=== PATIENT | female | born 1970 | race Caucasian/White ===

== ENCOUNTER → 2021-03-06 14:37 | Outpatient (CLI) | payer OTHER, SELFPAY ==
--- NOTE | 2021-03-06 14:49 | RAD_ITS ---
STUDY: X-RAY - CERVICAL SPINE REASON FOR EXAM: Female, 50 years old. CERVICALGIA TECHNIQUE: 5 view(s) of the cervical spine were obtained. COMPARISON: None FINDINGS: Normal anterior atlantoaxial articulation. Normal odontoid process. There is straightening of the normal cervical lordosis. Normal vertebral bodies and endplates. Disc spaces well preserved in the upper half of the cervical spine but there is disc space narrowing from C5-6 through C7-T1 most pronounced at C5-6. Normal visualized intervertebral neuroforamina except for bilateral narrowing at C5-6.. The soft tissue structures are unremarkable. RAD/Cerv Spine 4 or 5 Views IMPRESSION: Degenerative changes in the lower half of the C-spine, no demonstrated fracture or suspicious osseous lesion Electronically Signed: Corby Mata MD at 17:18 EST , Service support ,
== END ==
PROVIDERS: Referring Provider Nurse Practitioner Family; Visit Provider Nurse Practitioner Family
DX: M50.322 Other cervical disc degeneration at C5-C6 level (principal); M48.02 Spinal stenosis, cervical region
CPT/HCPCS: 72050

== ENCOUNTER 2021-06-01 11:03 | Outpatient (CLI) | payer OTHER, SELFPAY ==
[2021-06-01 12:07] LABS: Absolute Lymphocyte Count 3.13 X10^3/uL (0.83-4.51); Absolute Neutrophil Count 4.5 X10^3/uL (2.0-7.7); Basophil# 0.04 X10^3/uL; Basophil% 0.5 % (0-1); Eosinophil# 0.07 X10^3/uL; Eosinophils% 0.8 % (0-5); Hematocrit 43.3 % (37-47); Hemoglobin 14.9 g/dL (12.0-15.0); Lymphocyte # 3.13 X10^3/ul (0.83-4.51); Lymphocyte % 37.5 % (19-41); Mean Corp Hgb Conc 34.4 g/dL (32-36); Mean Corpuscular Hgb 35.1 pg (27.0-32.0); Mean Corpuscular Volume 101.9 fL (81-99); Mean Platelet Vol. 10.7 fl (6.2-12.0); Monocyte# 0.59 X10^3/uL; Monocyte% 7.1 % (0-10); NRBC Flagged by Analyzer 0 % (0-5); Neutrophil # 4.48 X10^3/uL (2.7-7.7); Neutrophil % 53.7 % (47-70); Platelet Count 270 K/mm3 (150-450); RBC Distribution Width CV 12.6 % (11.6-14.6); RBC Distribution Width SD 47.6 fl (35.1-43.9); Red Blood Count 4.25 M/mm3 (4.2-5.4); White Blood Count 8.3 K/mm3 (4.4-11.0)
[2021-06-01 12:43] LABS: ALB/GLOB Ratio 1.2 RATIO (0.9-2.4); AST(SGOT) 15 U/L (15-37); Alanine Aminotransfer ALT/SGPT 24 U/L (13-56); Albumin, Serum 3.5 g/dL (3.2-5.0); Alkaline Phosphatase 98 U/L (45-117); Anion Gap 5 (5-15); BUN 8 mg/dL (7-18); BUN/Creat Ratio 11.6 RATIO (10-20); Calcium,Total 8.7 mg/dL (8.5-10.1); Chloride 105 mmol/L (98-107); Cholesterol 247 mg/dL (200); Creatinine, Serum 0.69 mg/dL (0.55-1.02); EST Glomerular Filtration Rate 95 mL/min (>60); Est Glom Filt Rate - Afr Amer 115 mL/min (>60); Glucose 101 mg/dL (74-106); High Density Lipoprotein 36 mg/dL; Potassium 3.9 mmol/L (3.5-5.1); Protein, Total 6.5 g/dL (6.4-8.2); Sodium Level 136 mmol/L (136-145); Thyroid Stim Hormone (TSH) 0.63 uIU/mL (0.358-3.74); Triglycerides 395 mg/dL; Very Low Density Lipoprotein 79 mg/dL (5-40)
== END 2021-06-01 23:59 | disposition home or self-care (01) ==
LOC: MFPLAB 11:07
PROVIDERS: PCP Family Medicine; Referring Provider Family Medicine; Visit Provider Family Medicine
DX: Z00.00 Encounter for general adult medical examination without abnormal findings (principal); F17.210 Nicotine dependence, cigarettes, uncomplicated
CPT/HCPCS: 36415; 80053; 80061; 84443; 85025

== ENCOUNTER 2021-08-17 05:14 | Day surgery (SDC) | payer OTHER, SELFPAY ==
[2021-08-17] VITALS (14 sets, daily range): BP systolic 90–133; BP diastolic 53–84; PULSE 55–84; RESP 16–18; TEMP 35.5–36.3; O2SAT 97–100; BMI 28.5
--- NOTE | 2021-08-17 06:02 | PCM.HP.STD ---
HPI - General HPI Narrative AMANDA SOMMER, is a 51 F who presents today for screening colonoscopy. She had a previous remote greater than 10 years ago. She denies any current abdominal pain. She states that she has had bouts of diverticular disease in the past. No bright red blood per rectum or melena. No history of DVT. She does have chronic back pain. PFSH Medical History Alcohol use Arthritis Easy bruising History of diverticulitis History of pain when walking Injury of back Injury of head and neck Low iron Shortness of breath on exertion Smoker Home Medications acetaminophen [Tylenol] 1,000 mg PO DAILY 08/15/21 [History Last Taken Unknown] oregano oil 1 mg PO DAILY 08/15/21 [History Last Taken Unknown] Allergy/AdvReac Type Severity Reaction Status Date / Time codeine Allergy Severe Vomiting Verified 08/17/21 05:48 Penicillins Allergy PT UNSURE Verified 08/17/21 05:48 OF REACTION Surgical History (Updated 08/15/21 @ 08:46 by Jessica Rowley) History of partial hysterectomy Hx of bilateral inguinal hernia repair Hx of colonoscopy Hx of tubal ligation Hx of wisdom tooth extraction Social History Smoking Status: Current every day smoker tobacco type: cigarettes ROS Constitutional Constitutional: Reports systems reviewed and no addt'l complaints, except as documented Cardiovascular Cardiovascular: Denies chest pain Respiratory/Chest Respiratory/Chest: Denies shortness of breath at rest Gastrointestinal Gastrointestinal: Denies abdominal pain, change in bowel habits, hematochezia or melena Vital Signs Vital Signs Vital Signs: 08/17/21 05:51 08/17/21 05:52 Temperature 96.8 F L Temperature Source Temporal Pulse Rate 75 Respiratory Rate 18 Respiratory Pattern Normal Blood Pressure 124/62 H Blood Pressure Mean 82 Blood Pressure Source Monitor Blood Pressure Position Semi-Fowlers Blood Pressure Location Right Arm Pulse Ox 100 Oxygen Delivery Method Room Air Weight Weight: 156 lb 6.4 oz Body Mass Index (BMI) 28.5 Physical Exam Const alert, oriented x3 and no apparent distress General Appearance: cooperative and comfortable Eyes General Eye: normal appearance of both eyes Neck General: normal visual inspection Chest inspection of chest normal Resp Effort and Inspection: able to speak in complete sentences and symmetric chest movement Auscultation: clear to auscultation bilaterally Cardio regular rate and regular rhythm GI soft to palpation, non-tender and non-distended Extremity no calf tenderness Neuro oriented x3 Psych thought process normal Assessment & Plan Assessment/Plan (1) Encounter for screening for malignant neoplasm of colon: PLAN: The patient presents via open access today for screening colonoscopy. Plan to proceed with a colonoscopy with possible biopsy or polypectomy as indicated. She is aware of the technique, benefit, risk, alternatives. She has had an opportunity to ask and have questions answered. We will proceed as noted. Trav Shelton M.D., F.A.C.S.
[2021-08-17] MEDS: Lactated Ringers 1,000 ML 15 ML IV (06:09)
[2021-08-17] MEDS: Midazolam 5 MG/ML Syringe (06:30)
--- NOTE | 2021-08-17 06:30 | COLBX_PTH ---
PATIENT: AMANDA SOMMER LOC: EN U#:[id number] AGE/SX: 51/F ROOM: RE08/17/[address]: Dr. Trav Shelton MD : 1970 BED: DIS: 08/17/2021 SPEC #: [id number] RECD: 08/17/21 12:16 STATUS: SULEMA JUN #: [id number] RAÚL: 08/17/21 06:[address]: Trav Shelton DEPT: SURGICAL PATHOLOGY RECD BY: Sally Mac ENTERED: 08/17/21 12:40 SP TYPE: COLON BX OTHR DR: Dr. Jose Montez MD Tissues: Rectum, NOS Procedures: Surgery Specimen Level IV HEADER OPERATION: Colonoscopy ? open access (MOD) PRE-OP DIAGNOSIS: Screening TISSUE SUBMITTED: Two rectal polyps MICROSCOPIC DIAGNOSIS Rectal polyps, biopsy: Fragments of hyperplastic polyp. AM:christine 08/20/2021 MICROSCOPIC DESCRIPTION Slides are reviewed. GROSS DESCRIPTION Received in fixative is one container labeled with the patient's name and designated biopsy two (2) rectal polyps. The specimen consists of two irregular fragments of light kauffman soft tissue that in aggregate measure 0.5 x 0.5 x 0.2 cm. The specimen is totally submitted in one cassette. / SJ:christine 08/17/2021 TC:5 CPT: 89667
[2021-08-17] MEDS: DiphenhydrAMINE 50 MG/ML Syringe (06:35)
--- NOTE | 2021-08-17 06:49 | OP.COLON_ITS ---
Patient Name: Nyla Saleh Procedure Date: 08/17/2021 6:12 AM Date of : 1970 Age: 51 Procedure: Colonoscopy Indications: Screening for colorectal malignant neoplasm Providers: Trav Shelton MD Referring MD: Jose Montez Medicines: Midazolam 5 mg IV, Meperidine 100 mg IV, Diphenhydramine 25 mg IV Patient Profile: Last Colonoscopy: more than 10 years ago. Complications: No immediate complications. Procedure: Pre-Anesthesia Assessment: - Prior to the procedure, a History and Physical was performed, and patient medications and allergies were reviewed. The patient's tolerance of previous anesthesia was also reviewed. The risks and benefits of the procedure and the sedation options and risks were discussed with the patient. All questions were answered, and informed consent was obtained. Prior Anticoagulants: The patient has taken no previous anticoagulant or antiplatelet agents. ASA Grade Assessment: II - A patient with mild systemic disease. After reviewing the risks and benefits, the patient was deemed in satisfactory condition to undergo the procedure. After I obtained informed consent, the scope was passed under direct vision. Throughout the procedure, the patient's blood pressure, pulse, and oxygen saturations were monitored continuously. The adult colonoscope was introduced through the anus with the intention of advancing to the transverse colon. The scope was advanced to the sigmoid colon before the procedure was aborted. Medications were given. The colonoscopy was unusually difficult due to the patient's anxiety. The patient tolerated the procedure poorly due to the patient's inability to cooperate, the patient's poor cooperation, the patient's agitation and the patient's anxiety. The quality of the bowel preparation was good. The Colonoscope was introduced through the and advanced to. Moderate Sedation: Moderate (conscious) sedation was personally administered by the endoscopist. The following parameters were monitored: oxygen saturation, heart rate, blood pressure, and response to care. Total physician intraservice time was 10 minutes. Scope In: 6:34:27 AM Scope Out: 6:40:28 AM Total Procedure Duration Time 0 hours 6 minutes 1 second Findings: Hemorrhoids were found on perianal exam. Multiple diverticula were found in the sigmoid colon. There was no evidence of diverticular bleeding. Impression: - Hemorrhoids found on perianal exam. - Severe diverticulosis in the sigmoid colon. There was no evidence of diverticular bleeding. - No specimens collected. Recommendation: - Repeat colonoscopy today under MAC for screening purposes. - Continue present medications. Procedure Code(s): --- Professional --- 74455, 53, Colonoscopy, flexible; diagnostic, including collection of specimen(s) by brushing or washing, when performed (separate procedure) 12143, 59, Moderate sedation services provided by the same physician or other qualified health vision care associate performing the diagnostic or therapeutic service that the sedation supports, requiring the presence of an independent trained observer to assist in the monitoring of the patient's level of consciousness and physiological status; initial 15 minutes of intraservice time, patient age 5 years or older Diagnosis Code(s): --- Professional --- Z12.11, Encounter for screening for malignant neoplasm of colon K64.9, Unspecified hemorrhoids K57.30, Diverticulosis of large intestine without perforation or abscess without bleeding CPT copyright 2017 [employer]. All rights reserved. The codes documented in this report are preliminary and upon medical biller/coder review may be revised to meet current compliance requirements. Trav Shelton MD 08/17/2021 6:49:15 AM This report has been signed electronically. Number of Addenda: 0 Note Initiated On: 08/17/2021 6:12 AM
--- NOTE | 2021-08-17 06:50 | OP.CCLET_ITS ---
08/17/2021 Jose Montez [address] [place] [address] Re : Colonoscopy procedure for Nyla Saleh Dear Dr. Montez This procedure was performed on Tuesday, August 17, 2021. My impressions and recommendations are as follows: Impressions : - Hemorrhoids found on perianal exam. - Severe diverticulosis in the sigmoid colon. There was no evidence of diverticular bleeding. - No specimens collected. Recommendations : - Repeat colonoscopy today under MAC for screening purposes. - Continue present medications. My findings are described in the full procedure note, which is enclosed. If I can be of further assistance, please feel free to contact me at Doctor phone number(s): Work: . Sincerely, Trav Shelton MD 08/17/2021 6:49:15 AM This report has been signed electronically.
--- NOTE | 2021-08-17 08:35 | OP.COLON_ITS ---
Patient Name: Nyla Saleh Procedure Date: 08/17/2021 8:22 AM Date of : 1970 Age: 51 Procedure: Colonoscopy Indications: Screening for colorectal malignant neoplasm Providers: Trav Shelton MD Referring MD: Jose Montez Medicines: See the Anesthesia note for documentation of the administered medications Patient Profile: Last Colonoscopy: more than 10 years ago. Last Colonoscopy: more than 10 years ago. Complications: No immediate complications. Procedure: Pre-Anesthesia Assessment: - Prior to the procedure, a History and Physical was performed, and patient medications and allergies were reviewed. The patient's tolerance of previous anesthesia was also reviewed. The risks and benefits of the procedure and the sedation options and risks were discussed with the patient. All questions were answered, and informed consent was obtained. Prior Anticoagulants: The patient has taken no previous anticoagulant or antiplatelet agents. ASA Grade Assessment: II - A patient with mild systemic disease. After reviewing the risks and benefits, the patient was deemed in satisfactory condition to undergo the procedure. After I obtained informed consent, the scope was passed under direct vision. Throughout the procedure, the patient's blood pressure, pulse, and oxygen saturations were monitored continuously. The Colonoscope was introduced through the anus and advanced to the cecum, identified by appendiceal orifice and ileocecal valve. The colonoscopy was unusually difficult due to multiple diverticula in the colon. The patient tolerated the procedure well. The quality of the bowel preparation was adequate. The ileocecal valve and the appendiceal orifice were photographed. Scope In: 8:21:04 AM Scope Withdrawal Time 0 hours 6 minutes 42 seconds Scope Out: 8:29:55 AM Total Procedure Duration Time 0 hours 8 minutes 51 seconds Findings: Hemorrhoids were found on perianal exam. Multiple diverticula were found in the sigmoid colon and descending colon. The exam was otherwise without abnormality. A 5 mm polyp was found in the rectum. The polyp was sessile. The polyp was removed with a cold biopsy forceps. Resection and retrieval were complete. A 9 mm polyp was found in the rectum. The polyp was sessile. The polyp was removed with a cold biopsy forceps. Resection and retrieval were complete. Impression: - Hemorrhoids found on perianal exam. - Diverticulosis in the sigmoid colon and in the descending colon. Polyps x2, completely benign appearance - The examination was otherwise normal. - No specimens collected. Recommendation: - Discharge patient to home. - Resume previous diet. - Continue present medications. - Repeat colonoscopy in 10 years for screening purposes pending pathology results. - Telephone my office for pathology results in 1 week. Procedure Code(s): --- Professional --- 16113, Colonoscopy, flexible; with biopsy, single or multiple CPT copyright 2017 [employer]. All rights reserved. The codes documented in this report are preliminary and upon finished goods stock clerk review may be revised to meet current compliance requirements. Trav Shelton MD 08/17/2021 8:35:19 AM This report has been signed electronically. Number of Addenda: 0 Note Initiated On: 08/17/2021 8:22 AM
--- NOTE | 2021-08-17 08:36 | OP.CCLET_ITS ---
08/17/2021 Jose Montez [address] [place] [address] Re : Colonoscopy procedure for Nyla Saleh Dear Dr. Montez This procedure was performed on Tuesday, August 17, 2021. My impressions and recommendations are as follows: Impressions : - Hemorrhoids found on perianal exam. - Diverticulosis in the sigmoid colon and in the descending colon. Polyps x2, completely benign appearance - The examination was otherwise normal. - No specimens collected. Recommendations : - Discharge patient to home. - Resume previous diet. - Continue present medications. - Repeat colonoscopy in 10 years for screening purposes pending pathology results. - Telephone my office for pathology results in 1 week. My findings are described in the full procedure note, which is enclosed. If I can be of further assistance, please feel free to contact me at Doctor phone number(s): Work: . Sincerely, Trav Shelton MD 08/17/2021 8:35:19 AM This report has been signed electronically.
== END 2021-08-17 09:28 | disposition home or self-care (01) ==
LOC: EN 05:22 → AC 05:23
PROVIDERS: PCP Family Medicine; Referring Provider Family Medicine; Visit Provider Surgery
PROC: 0DJD8ZZ Inspection of Lower Intestinal Tract, Via Natural or Artificial Opening Endoscopic (ICD-10-PCS; CPT 45378; principal; 2021-08-17 06:25)
DX: Z12.11 Encounter for screening for malignant neoplasm of colon (principal); D12.8 Benign neoplasm of rectum; K57.30 Diverticulosis of large intestine without perforation or abscess without bleeding; K64.9 Unspecified hemorrhoids; F17.210 Nicotine dependence, cigarettes, uncomplicated
CPT/HCPCS: 45380; 88305; 99152; 99153; J7120; J2405

== ENCOUNTER → 2022-05-23 | Outpatient (CLI) | payer MEDICAID, SELFPAY ==
[2022-05-23 18:02] LABS: Absolute Lymphocyte Count 3.75 X10^3/uL (0.83-4.51); Absolute Neutrophil Count 7.2 X10^3/uL (2.0-7.7); Basophil# 0.05 X10^3/uL; Basophil% 0.4 % (0-1); Eosinophil# 0.17 X10^3/uL; Eosinophils% 1.4 % (0-5); Hematocrit 41.4 % (37-47); Hemoglobin 14.5 g/dL (12.0-15.0); Lymphocyte # 3.75 X10^3/ul (0.83-4.51); Lymphocyte % 31.3 % (19-41); Mean Corpuscular Hgb 36.2 pg (27.0-32.0); Mean Corpuscular Volume 103.2 fL (81-99); Mean Platelet Vol. 12.7 fl (6.2-12.0); Monocyte# 0.75 X10^3/uL; Monocyte% 6.3 % (0-10); NRBC Flagged by Analyzer 0 % (0-5); Neutrophil # 7.21 X10^3/uL (2.7-7.7); Neutrophil % 60.3 % (47-70); Platelet Count 221 K/mm3 (150-450); RBC Distribution Width CV 12.5 % (11.6-14.6); RBC Distribution Width SD 47.2 fl (35.1-43.9); Red Blood Count 4.01 M/mm3 (4.2-5.4)
[2022-05-23 18:19] LABS: Vitamin B12 798 pg/mL (211-911)
[2022-05-23 18:29] LABS: ALB/GLOB Ratio 1.3 RATIO (0.9-2.4); AST(SGOT) 17 U/L (15-37); Alanine Aminotransfer ALT/SGPT 23 U/L (13-56); Albumin, Serum 3.7 g/dL (3.2-5.0); Alkaline Phosphatase 101 U/L (45-117); Anion Gap 8 (5-15); BUN 7 mg/dL (7-18); BUN/Creat Ratio 10.4 RATIO (10-20); Calcium,Total 8.7 mg/dL (8.5-10.1); Chloride 105 mmol/L (98-107); Creatinine, Serum 0.67 mg/dL (0.55-1.02); EST Glomerular Filtration Rate 98 mL/min (>60); Est Glom Filt Rate - Afr Amer 118 mL/min (>60); Globulin 2.9 g/dL (2.2-4.2); Glucose 115 mg/dL (74-106); Iron 72 ug/dL (50-170); Iron Binding Capacity,Total 265 ug/dL (250-450); Magnesium 1.9 mg/dL (1.6-2.6); PERCENT IRON SATURATION 27.2 % (15.0-55.0); Potassium 3.9 mmol/L (3.5-5.1); Protein, Total 6.6 g/dL (6.4-8.2); Sodium Level 137 mmol/L (136-145)
[2022-05-24 12:49] LABS: Hemoglobin A1c 5.4 % (3.8-5.6)
[2022-05-27 16:24] LABS: Endomysial Antibody IgA Negative (Negative); Immunoglobulin A 275 mg/dL (87-352); t-Transglutaminase IgA 3 U/mL (0-3)
== END | disposition home or self-care (01) ==
PROVIDERS: PCP Family Medicine; Referring Provider Family Medicine; Visit Provider Family Medicine
DX: K52.9 Noninfective gastroenteritis and colitis, unspecified (principal)
CPT/HCPCS: 36415; 80053; 82607; 82784; 83036; 83516; 83540; 83550; 83735; 85025; 86255

== ENCOUNTER → 2022-05-28 | Outpatient (CLI) | payer MEDICAID, SELFPAY ==
[2022-06-05 09:59] LABS: Calprotectin, Stool 41 ug/g (0-120); Fats, Neutral Normal (.); Fats, Total Increased (.)
== END | disposition home or self-care (01) ==
PROVIDERS: PCP Family Medicine; Referring Provider Family Medicine; Visit Provider Family Medicine
DX: J35.3 Hypertrophy of tonsils with hypertrophy of adenoids (principal); H66.93 Otitis media, unspecified, bilateral
CPT/HCPCS: 82705; 83630; 83993; 87177; 87209; 87493; 87506

== ENCOUNTER 2022-08-12 13:10 | Outpatient (CLI) | payer MEDICAID, SELFPAY ==
[2022-08-12 13:54] LABS: Erythrocyte Sedimentation Rate 7 mm/hr (0-30)
[2022-08-12 13:57] LABS: Absolute Lymphocyte Count 3.21 X10^3/uL (0.83-4.51); Absolute Neutrophil Count 7.1 X10^3/uL (2.0-7.7); Basophil# 0.06 X10^3/uL; Basophil% 0.5 % (0-1); Eosinophil# 0.07 X10^3/uL; Eosinophils% 0.6 % (0-5); Hematocrit 44.2 % (37-47); Hemoglobin 15.3 g/dL (12.0-15.0); Lymphocyte # 3.21 X10^3/ul (0.83-4.51); Lymphocyte % 28.7 % (19-41); Mean Corp Hgb Conc 34.6 g/dL (32-36); Mean Corpuscular Hgb 35.1 pg (27.0-32.0); Mean Corpuscular Volume 101.4 fL (81-99); Mean Platelet Vol. 10.6 fl (6.2-12.0); Monocyte# 0.74 X10^3/uL; Monocyte% 6.6 % (0-10); NRBC Flagged by Analyzer 0 % (0-5); Neutrophil # 7.07 X10^3/uL (2.7-7.7); Neutrophil % 63.2 % (47-70); Platelet Count 283 K/mm3 (150-450); RBC Distribution Width SD 45.3 fl (35.1-43.9); Red Blood Count 4.36 M/mm3 (4.2-5.4); White Blood Count 11.2 K/mm3 (4.4-11.0)
[2022-08-12 14:16] LABS: AST(SGOT) 18 U/L (15-37); Alanine Aminotransfer ALT/SGPT 27 U/L (13-56); Albumin, Serum 3.8 g/dL (3.2-5.0); Alkaline Phosphatase 110 U/L (45-117); Anion Gap 6 (5-15); BUN 7 mg/dL (7-18); BUN/Creat Ratio 10.7 RATIO (10-20); CRP 8.45 mg/L (0.0-3.0); Calcium,Total 9.1 mg/dL (8.5-10.1); Chloride 103 mmol/L (98-107); Creatinine, Serum 0.66 mg/dL (0.55-1.02); EST Glomerular Filtration Rate 100 mL/min (>60); Est Glom Filt Rate - Afr Amer 121 mL/min (>60); Globulin 3.8 g/dL (2.2-4.2); Glucose 101 mg/dL (74-106); LDH 229 U/L (84-246); Potassium 3.7 mmol/L (3.5-5.1); Protein, Total 7.6 g/dL (6.4-8.2); Sodium Level 135 mmol/L (136-145)
[2022-08-14 15:08] LABS: Endomysial Antibody IgA Negative (Negative); Immunoglobulin A 293 mg/dL (87-352); t-Transglutaminase IgA 3 U/mL (0-3)
[2022-08-16 19:07] LABS: Alpha-1-Globulins 0.3 g/dL (0.0-0.4); Alpha-2-Globulins 0.9 g/dL (0.4-1.0); Anti-Centromere B Ab <0.2 AI (0.0-0.9); Anti-Chromatin <0.2 AI (0.0-0.9); Anti-Jo <0.2 AI (0.0-0.9); Anti-Scleroderma-70 AB <0.2 AI (0.0-0.9); Anti-dsDNA Ab <1 IU/mL (0-9); Beef <0.10 kU/L (Class 0); Chocolate <0.10 kU/L (Class 0); Clam <0.10 kU/L (Class 0); Codfish <0.10 kU/L (Class 0); Corn <0.10 kU/L (Class 0); Cytoplasmic Ab (C-ANCA) <1:20 titer (Neg:<1:20); Egg, White <0.10 kU/L (Class 0); Egg, Whole <0.10 kU/L (Class 0); Gamma Globulin 0.7 g/dL (0.4-1.8); Gastrin, Serum 28 pg/mL (0-115); Immunoglobulin A 290 mg/dL (87-352); Immunoglobulin E 17 IU/mL (6-495); Immunoglobulin G 520 mg/dL (586-1602); Immunoglobulin M 240 mg/dL (26-217); Milk (Cow) <0.10 kU/L (Class 0); PROEL- TOTAL PROTEIN 7.1 g/dL (6.0-8.5); Peanut <0.10 kU/L (Class 0); Perinuclear Ab (P-ANCA) <1:20 titer (Neg:<1:20); Pork <0.10 kU/L (Class 0); RNP Ab <0.2 AI (0.0-0.9); SCALLOP <0.10 kU/L (Class 0); SESAME SEED <0.10 kU/L (Class 0); SJOGREN'S Anti-SS-A test < 0.2 AI (0.0-0.9); SJOGREN'S Anti-SS-B test < 0.2 AI (0.0-0.9); Shrimp <0.10 kU/L (Class 0); Smith Ab <0.2 AI (0.0-0.9); Soybean <0.10 kU/L (Class 0); Walnut, (Food) <0.10 kU/L (Class 0); Wheat <0.10 kU/L (Class 0)
== END 2022-08-12 23:59 | disposition home or self-care (01) ==
PROVIDERS: PCP Family Medicine; Referring Provider Internal Medicine Gastroenterology; Visit Provider Internal Medicine Gastroenterology
DX: R19.7 Diarrhea, unspecified (principal)
CPT/HCPCS: 36415; 80053; 82784; 82785; 82941; 83516; 83615; 84165; 85025; 85652; 86003; 86005; 86140; 86225; 86235; 86255; 86256; 86334

== ENCOUNTER → 2022-08-24 | Outpatient (CLI) | payer MEDICAID, SELFPAY ==
[2022-08-24 09:45] LABS: Hemoglobin A1c 5.4 % (3.8-5.6)
== END | disposition home or self-care (01) ==
LOC: LABSPEC 08:07
PROVIDERS: PCP Family Medicine; Referring Provider Internal Medicine Gastroenterology; Visit Provider Internal Medicine Gastroenterology
DX: K52.9 Noninfective gastroenteritis and colitis, unspecified (principal); R73.09 Other abnormal glucose
CPT/HCPCS: 36415; 82653; 82784; 83036; 83516; 86255; 87338; 87493

== ENCOUNTER → 2023-01-01 | Outpatient (CLI) | payer MEDICAID, SELFPAY ==
--- NOTE | 2023-01-01 11:45 | NM_ITS ---
INDICATION: nausea and vomiting EXAMINATION: NUCLEAR MEDICINE GASTRIC EMPTYING - NM Gastric Emptying Study (solid, liquid or both) TECHNIQUE: Radiopharmaceutical (solid portion of the exam): 1.0 mCi of Tc99m Sulfur Colloid mixed with oat meal. Oral administration. Imagin minutes COMPARISON: None FINDINGS: T1/2 is measured at 35 minutes. At 60 minutes, there is 83% emptying. Visually, there is normal passage of isotope from the gastric fundus into the distal stomach and proximal small bowel. No gastroesophageal reflux. NM/Gastric Emptying Study IMPRESSION: Normal gastric emptying time with solids. Electronically Signed: Mo Graham MD ([place]) at 13:53 EDT ,
== END | disposition home or self-care (01) ==
LOC: NM 11:44
PROVIDERS: PCP Family Medicine; Referring Provider Internal Medicine Gastroenterology; Visit Provider Internal Medicine Gastroenterology
DX: Z12.11 Encounter for screening for malignant neoplasm of colon (principal); R11.2 Nausea with vomiting, unspecified; R19.7 Diarrhea, unspecified
CPT/HCPCS: 78264; A9541

== ENCOUNTER → 2023-01-25 | Outpatient (CLI) | payer MEDICAID, SELFPAY ==
--- NOTE | 2023-01-25 09:27 | US_ITS ---
STUDY: ABDOMINAL ULTRASOUND - RIGHT UPPER QUADRANT REASON FOR VISIT: Female, 52 years old possible chronic pancreatitis, abnormal stools TECHNIQUE: Ultrasound evaluation of the right upper quadrant was performed with real-time and static palma-scale imaging. TECHNICAL QUALITY: Adequate. COMPARISON: None. FINDINGS: Liver: The liver measures 14.0 cm. There is normal echogenicity of the liver. The bile ducts are within normal limits. There is hepatic color flow. The direction of portal flow is hepatopetal. There is no demonstrated mass lesion. Gallbladder: Normal distended gallbladder. The gallbladder wall measures 2 mm. There is a negative sonographic Dickerson''s sign. There is no pericholecystic fluid. There are no gallstones. Common Bile Duct (C.B.D.): The common bile duct measures 5 mm. Pancreas: Normal size of the head, body and tail of the pancreas. There is normal echogenicity of the pancreas. There is no demonstrated pancreatic mass or cyst. Right Kidney: Normal size of the right kidney. The right kidney measures 9.5 cm. Normal renal cortex. The right cortex measures 1.3 cm. There is no demonstrated renal mass or cyst. There is no right hydronephrosis. US/Abdomen Limited IMPRESSION: Normal right upper quadrant ultrasound examination. Electronically Signed: Fransisco Hicks MD at 21:09 EST ,
== END | disposition home or self-care (01) ==
LOC: US 09:18
PROVIDERS: PCP Family Medicine; Visit Provider Internal Medicine Gastroenterology
DX: K59.1 Functional diarrhea (principal)
CPT/HCPCS: 76705

== ENCOUNTER → 2023-03-06 | Outpatient (CLI) | payer MEDICAID, SELFPAY ==
--- OUTSIDE RECORDS SUMMARY | 2023-03-06 07:34 | XMS RPT_ITS | CCD ---
Author Name Unknown Address [address] [place] [address] Organization [facility] Results Test Name Value Interpretation Reference Range Facil ity Summary Purpose Family History No Family History Records Found Advance Directives No Advanced Directives Records Found Additional Source Comments INFORMATION SOURCE (unrecogn ized section and content) FOR RECORDS PERTAINING TO PATIENTS WHO ARE OR HAVE BEEN ENROLLED IN A CHEMICAL DEPENDENCY/SUBSTANCEABUSE PROGRAM, SOME INFORMATION MAY BE OMITTED. This clinical summary was aggregated from multiple sources. Caution should be exercised in using it in the provision of clinical care. This summary normalizes information from multiple sources, and as a consequence, information in this document may materially change the coding, format and clinical context of patient data. In addition, data may be omitted in some cases. CLINICAL DECISIONS SHOULD BE BASED ON THE PRIMARY CLINICAL RECORDS. [facility] [employer] [facility]. provides no warranty or guarantee of the accuracy or completeness of information in this document.
--- NOTE | 2023-03-06 07:37 | CT_ITS ---
STUDY: CT ABDOMEN WITH CONTRAST REASON FOR EXAM: Female, 52 years old. Nausea, abdominal pain and loose stools. RADIATION DOSAGE (If Supplied By Facility): CTDIvol = ( 8.66 ) mGy, DLP = ( 253.00 ) mGycm TECHNIQUE: Transaxial images were obtained without I.V. administration, and with oral contrast. Sagittal and coronal images were reconstructed. Individualized dose optimization techniques were used for this CT. COMPARISON: None. FINDINGS: The visualized lung bases are unremarkable. The visualized portions of the heart are within normal limits. Normal liver. Normal gallbladder and extrahepatic biliary system. Normal spleen. Normal pancreas. Normal bilateral adrenal glands. Normal right kidney. Normal left kidney. Normal visualized stomach. Normal small intestine. Normal colon. There is non-visualization of the appendix. Mild scattered calcifications of the inferior abdominal aorta extending to the proximal iliac arteries. Normal inferior vena cava. Normal retroperitoneum. There is a small umbilical hernia containing fat. There are diffuse degenerative changes of the visualized lumbar spine. CT/Abdomen WITH ORAL Cont Only IMPRESSION: No evidence of acute intra-abdominal process or focal inflammation. Small umbilical fat-containing hernia. Electronically Signed: Chago Acuna DO at 14:02 [facility] ,
== END | disposition home or self-care (01) ==
LOC: CT 07:32
PROVIDERS: PCP Family Medicine; Referring Provider Internal Medicine Gastroenterology; Visit Provider Internal Medicine Gastroenterology
DX: K52.9 Noninfective gastroenteritis and colitis, unspecified (principal); R10.9 Unspecified abdominal pain
CPT/HCPCS: 74150

== ENCOUNTER → 2023-05-15 | Outpatient (CLI) | payer MEDICAID, SELFPAY ==
--- NOTE | 2023-05-15 12:41 | RAD_ITS ---
INDICATION: PAIN EXAMINATION/TECHNIQUE: X-RAY - XR Spine Thoracic 2 Views COMPARISON: No relevant prior comparison study available FINDINGS: VERTEBRAE: Preserved vertebral body height. No fracture. No spondylolisthesis. Mild increased kyphosis. Mild dextroscoliosis. DISCS: Mild narrowing of mid thoracic disc spaces. Endplate spondylosis. INCLUDED CHEST/ABDOMEN: No acute abnormalities. RAD/Thoracic Spine 2 Views IMPRESSION: Mild degenerative changes. Electronically Signed: Sedrick Avendaño MD at 10:27 EST ,
== END | disposition home or self-care (01) ==
LOC: MTRAD 12:39
PROVIDERS: PCP Family Medicine; Referring Provider Clinical Nurse Specialist Adult Health; Visit Provider Clinical Nurse Specialist Adult Health
DX: M54.6 Pain in thoracic spine (principal)
CPT/HCPCS: 72070

== ENCOUNTER → 2023-06-24 | Outpatient (CLI) | payer MEDICAID, SELFPAY ==
[2023-06-24 15:19] LABS: Absolute Lymphocyte Count 2.51 X10^3/uL (0.83-4.51); Absolute Neutrophil Count 6.6 X10^3/uL (2.0-7.7); Basophil# 0.05 X10^3/uL; Basophil% 0.5 % (0-1); Eosinophil# 0.09 X10^3/uL; Eosinophils% 0.9 % (0-5); Hematocrit 39.1 % (37-47); Lymphocyte # 2.51 X10^3/ul (0.83-4.51); Lymphocyte % 25.5 % (19-41); Mean Corp Hgb Conc 33.2 g/dL (32-36); Mean Corpuscular Hgb 33.9 pg (27.0-32.0); Mean Corpuscular Volume 102.1 fL (81-99); Mean Platelet Vol. 11.2 fl (6.2-12.0); Monocyte# 0.56 X10^3/uL; Monocyte% 5.7 % (0-10); NRBC Flagged by Analyzer 0 % (0-5); Platelet Count 250 K/mm3 (150-450); RBC Distribution Width CV 12.5 % (11.6-14.6); RBC Distribution Width SD 47.3 fl (35.1-43.9); Red Blood Count 3.83 M/mm3 (4.2-5.4); White Blood Count 9.9 K/mm3 (4.4-11.0)
[2023-06-24 16:06] LABS: ALB/GLOB Ratio 1.1 RATIO (0.9-2.4); AST(SGOT) 16 U/L (15-37); Alanine Aminotransfer ALT/SGPT 21 U/L (13-56); Albumin, Serum 3.3 g/dL (3.2-5.0); Alkaline Phosphatase 106 U/L (45-117); Anion Gap 4 (5-15); BUN 6 mg/dL (7-18); BUN/Creat Ratio 8.7 RATIO (10-20); Calcium,Total 8.8 mg/dL (8.5-10.1); Chloride 106 mmol/L (98-107); Creatinine, Serum 0.69 mg/dL (0.55-1.02); EST Glomerular Filtration Rate 94 mL/min (>60); Est Glom Filt Rate - Afr Amer 114 mL/min (>60); Globulin 3.1 g/dL (2.2-4.2); Glucose 99 mg/dL (74-106); Lipase 31 U/L (13-75); Potassium 3.9 mmol/L (3.5-5.1); Protein, Total 6.4 g/dL (6.4-8.2); Sodium Level 139 mmol/L (136-145)
== END | disposition home or self-care (01) ==
LOC: MFPLAB 13:53
PROVIDERS: PCP Family Medicine; Visit Provider Family Medicine
DX: R10.9 Unspecified abdominal pain (principal)
CPT/HCPCS: 36415; 80053; 83690; 85025

== ENCOUNTER 2023-07-01 05:15 | Day surgery (SDC) | payer MEDICAID, SELFPAY ==
--- NOTE | 2023-06-30 | ESO_PTH ---
PATIENT: AMANDA SOMMER LOC: EN U#:[id number] AGE/SX: 52/F ROOM: RE07/01/[address]: Dr. John Queen DO : 1970 BED: DIS: 07/01/2023 SPEC #: [id number] RECD: 07/01/23 10:54 STATUS: SULEMA RERekha #: [id number] ARÚL: 06/30/23 00:[address]: John Queen DEPT: SURGICAL PATHOLOGY RECD BY: Kunal Carmona ENTERED: 07/01/23 10:54 SP TYPE: CARLIE OMER DR: Dr. Jose Montez MD Tissues: A - Duodenum, NOS B - Esophagus, NOS C - Cecum, NOS Procedures: Special Stain Group II Surgery Specimen Level IV Alcian Blue/PAS (control) HEADER OPERATION: Colonoscopy, EGD, biopsy PRE-OP DIAGNOSIS: Frequent loose stools, Chronic diarrhea, Encounter for screening for malignant neoplasm of colon TISSUE SUBMITTED: A- Duodenum biopsy, B- Distal esophagus biopsy, C- Cecum polyp biopsy MICROSCOPIC DIAGNOSIS A. Duodenum, biopsy: Fragments of duodenal mucosa with focal villus blunting and gastric metaplasia. B. Distal esophagus, biopsy: Fragments of gastric mucosa with chronic inflammation. Intestinal metaplasia (goblet cell metaplasia) not identified. See comment. C. Cecum polyp, biopsy: Tubular adenoma. / 07/02/2023 COMMENT B. Alcian blue/PAS stain with matched control is used in the evaluation of the specimen. MICROSCOPIC DESCRIPTION Slides are reviewed. GROSS DESCRIPTION A. Received in fixative is one container labeled with the patient's name and designated Duodenum biopsy. The specimen consists of two irregular fragments of light kauffman soft tissue that in aggregate measure 0.6 x 0.3 x 0.1 cm. The specimen is totally submitted in one cassette. B. Received in fixative is one container labeled with the patient's name and designated Distal esophagus biopsy. The specimen consists of two irregular fragments of light kauffman soft tissue that in aggregate measure 0.6 x 0.3 x 0.1 cm. The specimen is totally submitted in one cassette. C. Received in fixative is one container labeled with the patient's name and designated Cecum polyp biopsy. The specimen consists of two irregular fragments of light kauffman soft tissue that in aggregate measure 0.6 x 0.3 x 0.1 cm. The specimen is totally submitted in one cassette. SIMONE/ 07/01/2023 TC:1 CPT:03922g5,13327
[2023-07-01 05:52] VITALS: BP 140/89; PULSE 87; RESP 18; TEMP 36.1; O2SAT 100; BMI 27.0
[2023-07-01] MEDS: Lactated Ringers 1,000 ML 15 ML IV (06:00)
--- NOTE | 2023-07-01 06:43 | PCM.HP.BLA ---
History and Physical Date of Admission: 07/01/23 AMANDA SOMMER, is a 52 F who presents to the office today for follow up Colonoscopy, screening 08.17.21?hemorrhoids; diverticulosis; two hyperplastic polyps. ? PCP OV for f/u of chronic conditions. Noting difficulty of stomach difficulty who which OTC Pepcid has been used. Diarrhea (liquid and yellow) is improved with now just 2-3 days/week with 1-2 stools/day instead of daily episodes; at it?s worst she also had emesis. Drinks 2-4 beers/day.?Start Carafate.?Stool ?calprotectin, fats, O/P, EP, C.difficile, lactoferrin WNL.? *BGI established 08.12.22 BM pattern is urgent loose stools alternating with normal stools, emesis typically in the evenings on the days of loose stools and generalized abdominal pain; reports that she often passes our following emesis episodes. Historically food triggers included pasta with red sauce. She spent a year in [facility] [id number] and she became very ill with weight loss and symptoms that lasted for an extended period of time; she became in 1995 and had a recurrence of symptoms. ?Biochemical?CBC, ESR, CMP, LFT, celiac, RAST, SHRADDHA comp, ANCA, IgAE, gastrin, APRIL, IBD without pertinent abnormality.? CRP H8.45, IgG L520, IgM H240?Stool C.difficile,?H.Pylori WNL.?? Contact 08.20.22 with bloodwork results; she is working at producing the stool results.? ? OV 12.20.22 Pt reports ongoing daily nausea, abdominal pain, loose urgent stools. Abdominal pain relieved by vomiting or having a BM. Stools are urgent and come on with no warning. States she can only eat a small ammount at a time and if she gets too full she will have nausea or diarrhea. Denied heartburn or dysphagia. Says she sees alot of stomach acid in her stools along with mucus. OV 4.12.24 Pt reports continued symptoms from last visit. Pt states that she takes Zofran and Loperamide as needed. ROS Const Constitutional: Positive for fatigue, headache(s) and weakness ENT ENT: Positive for headache(s); No difficulty swallowing Cardio Cardiology: Positive for leg pain with exertion Gastro GI: Positive for abdominal pain, diarrhea, heartburn, nausea/dyspepsia and vomiting; No belching, bloating, change in bowel habits, change in stool character, coffee ground emesis, constipation, cramping, difficulty swallowing, feeling full early, excessive flatus, incontinent of stools, Vomiting blood/hematemesis, Blood in stool, loose stools, Black,tarry stools, pain with swallowing or other Musc Musculoskeletal: Positive for abnormal gait, joint pain, back pain, muscle weakness, numbness, stiffness, tingling, Arthritis, sciatica and leg pain with exertion; No joint swelling or muscle cramps Skin Skin: No yellowing of the eye or itchy eyes Neuro Neurology: Positive for abnormal gait, unsteady gait/balance, weakness, headache(s), numbness and tingling Psych Psychiatric: No anxiety and No depression Endo Endocrine: Positive for fatigue Aller/Imm Allergy/Immunologic: No itchy eyes Anupam/Lymp Hematologic/Lymphatic: No easy bleeding or easy bruising Exam Const General: cooperative and comfortable Nutritional Appearance: average body habitus and well nourished [facility] Head: normal to inspection Ears: hearing grossly normal bilaterally Nose: external nose normal Face and sinus: normal facial exam Mouth: oral mucosae normal Throat: posterior oropharynx normal Eyes General: appearance normal, both eyes and all related structures Neck Neck: normal visual inspection Chest Chest palpation & inspection: normal inspection of the chest and normal palpation of entire chest wall Resp Effort & Inspection: normal respiratory effort Auscultation: Bilateral: Clear to Auscultation Cardio Palpation: normal PMI Rate: regular rate Rhythm: regular rhythm GI Inspection: normal to inspection Auscultation: normal bowel sounds Percussion: normal to percussion Palpation: no hepatosplenomegaly Skin General: no rashes or lesions noted Neuro General: patient alert Extrem General: normal to inspection Psych Affect: normal affect Quality Reporting Tobacco Screening ([facility] 138) Smoking Status: Current every day smoker Assessment and Plan Assessment and Plan (1) Frequent loose stools: Status: Chronic Qualifiers: Diarrhea type: functional diarrhea Qualified Code(s): K59.1 - Functional diarrhea Plan: She has an elevated MCV which would be consistent with a reticulocytosis, previous alcohol usage or current alcohol usage, hypothyroidism and can be associated with chronic diarrhea from chronic pancreatitis. She is also at risk for small bacterial overgrowth because she takes oregano oil. She does have some increased fat in her stool but we need pancreatic elastase levels and we need a gastric emptying study to see if she is having dumping syndrome. She is okay with this plan. We will get stool for fecal elastase and possibly put on pancreatic enzymes in the future. She may also benefit from bile acid resin such as cholestyramine due to the fact that she has increased fat in her stool and she has hypercholesterolemia. I would recommend a CT scan abdomen pelvis to see if there is any calcifications in the pancreas. We will get an egd and colonoscopy (2) Chronic diarrhea: Status: Chronic (3) Encounter for screening for malignant neoplasm of colon: Status: Acute I have examined the patient and the H&P has been reviewed. There are no clinical changes since date of exam. I have examined the patient and the H&P has been reviewed. There are no clinical changes since date of exam.
[2023-07-01 07:18] VITALS: BP 115/81; BP 140/89; PULSE 86; RESP 16; TEMP 36; O2SAT 97
--- NOTE | 2023-07-01 07:18 | OP.EGD_ITS ---
Patient Name: Nyla Saleh Procedure Date: 07/01/2023 6:34 AM Date of : 1970 Age: 52 Procedure: Upper GI endoscopy Indications: Epigastric abdominal pain, Heartburn Providers: John Queen DO Referring MD: Jose Montez Medicines: Monitored Anesthesia Care Patient Profile: This is a 52 year old female. Refer to note in patient chart for documentation of history and physical. Patient has symptoms of chronic epigastric abdominal pain and chronic heartburn. Complications: No immediate complications. Procedure: Pre-Anesthesia Assessment: - Prior to the procedure, a History and Physical was performed, and patient medications and allergies were reviewed. The patient is competent. The risks and benefits of the procedure and the sedation options and risks were discussed with the patient. All questions were answered and informed consent was obtained. Patient identification and proposed procedure were verified by the physician in the pre-procedure area. Mental Status Examination: alert and oriented. Airway Examination: normal oropharyngeal airway and neck mobility. Prophylactic Antibiotics: The patient does not require prophylactic antibiotics. Prior Anticoagulants: The patient has taken no anticoagulant or antiplatelet agents. ASA Grade Assessment: III - A patient with severe systemic disease. After reviewing the risks and benefits, the patient was deemed in satisfactory condition to undergo the procedure. The anesthesia plan was to use monitored anesthesia care (MAC). Immediately prior to administration of medications, the patient was re-assessed for adequacy to receive sedatives. The heart rate, respiratory rate, oxygen saturations, blood pressure, adequacy of pulmonary ventilation, and response to care were monitored throughout the procedure. The physical status of the patient was re-assessed after the procedure. After obtaining informed consent, the endoscope was passed under direct vision. Throughout the procedure, the patient's blood pressure, pulse, and oxygen saturations were monitored continuously. The Colonoscope was introduced through the mouth, and advanced to the second part of duodenum. The upper GI endoscopy was accomplished without difficulty. The patient tolerated the procedure well. Scope In: 6:47:59 AM Scope Out: 6:52:07 AM Total Procedure Duration Time 0 hours 4 minutes 8 seconds Findings: LA Grade A (one or more mucosal breaks less than 5 mm, not extending between tops of 2 mucosal folds) esophagitis with no bleeding was found 38 to 39 cm from the incisors. Biopsies were taken with a cold forceps for histology. Verification of patient identification for the specimen was done. Estimated blood loss was minimal. A small hiatal hernia was present. The exam of the stomach was otherwise normal. A single localized erosion without bleeding was found in the duodenal bulb. Biopsies were taken with a cold forceps for histology. Verification of patient identification for the specimen was done. Estimated blood loss was minimal. Impression: - LA Grade A reflux esophagitis with no bleeding. Biopsied. - Small hiatal hernia. - Duodenal erosion without bleeding. Biopsied. Recommendation: - Discharge patient to home. - Resume previous diet. - Continue present medications. - Await pathology results. Procedure Code(s): --- Professional --- 47382, Esophagogastroduodenoscopy, flexible, transoral; with biopsy, single or multiple CPT copyright 2021 [employer]. All rights reserved. The codes documented in this report are preliminary and upon furnace process plant operator review may be revised to meet current compliance requirements. John Queen DO 07/01/2023 7:17:10 AM This report has been signed electronically. Number of Addenda: 0 Note Initiated On: 07/01/2023 6:34 AM
--- NOTE | 2023-07-01 07:18 | OP.CCLET_ITS ---
07/01/2023 Jose Montez [address] [place] [address] Re : Upper GI endoscopy procedure for Nyla Saleh Dear Dr. Montez This procedure was performed on Saturday, July 01, 2023. My impressions and recommendations are as follows: Impressions : - LA Grade A reflux esophagitis with no bleeding. Biopsied. - Small hiatal hernia. - Duodenal erosion without bleeding. Biopsied. Recommendations : - Discharge patient to home. - Resume previous diet. - Continue present medications. - Await pathology results. My findings are described in the full procedure note, which is enclosed. If I can be of further assistance, please feel free to contact me at . Sincerely, John Queen, 07/01/2023 7:17:10 AM This report has been signed electronically.
[2023-07-01 07:20] VITALS: BP 109/73; BP 140/89; PULSE 93; RESP 16; O2SAT 98
--- NOTE | 2023-07-01 07:21 | OP.COLON_ITS ---
Patient Name: Nyla Slaeh Procedure Date: 07/01/2023 6:52 AM Date of : 1970 Age: 52 Procedure: Colonoscopy Indications: Screening for colorectal malignant neoplasm Providers: John Queen DO Referring MD: Jose Montez Medicines: Monitored Anesthesia Care Patient Profile: This is a 52 year old female. Refer to note in patient chart for documentation of history and physical. Patient has symptoms of chronic epigastric abdominal pain and chronic heartburn. Last Colonoscopy: date unknown. Unable to locate last colonoscopy report. Complications: No immediate complications. Procedure: Pre-Anesthesia Assessment: - Prior to the procedure, a History and Physical was performed, and patient medications and allergies were reviewed. The patient is competent. The risks and benefits of the procedure and the sedation options and risks were discussed with the patient. All questions were answered and informed consent was obtained. Patient identification and proposed procedure were verified by the physician in the pre-procedure area. Mental Status Examination: alert and oriented. Airway Examination: normal oropharyngeal airway and neck mobility. Prophylactic Antibiotics: The patient does not require prophylactic antibiotics. Prior Anticoagulants: The patient has taken no anticoagulant or antiplatelet agents. ASA Grade Assessment: III - A patient with severe systemic disease. After reviewing the risks and benefits, the patient was deemed in satisfactory condition to undergo the procedure. The anesthesia plan was to use monitored anesthesia care (MAC). Immediately prior to administration of medications, the patient was re-assessed for adequacy to receive sedatives. The heart rate, respiratory rate, oxygen saturations, blood pressure, adequacy of pulmonary ventilation, and response to care were monitored throughout the procedure. The physical status of the patient was re-assessed after the procedure. After I obtained informed consent, the scope was passed under direct vision. Throughout the procedure, the patient's blood pressure, pulse, and oxygen saturations were monitored continuously. The Colonoscope was introduced through the anus and advanced to the cecum, identified by appendiceal orifice and ileocecal valve. The ileocecal valve, appendiceal orifice, and rectum were photographed. Scope In: 6:54:15 AM Scope Withdrawal Time 0 hours 9 minutes 55 seconds Scope Out: 7:09:40 AM Total Procedure Duration Time 0 hours 15 minutes 25 seconds Findings: The perianal and digital rectal examinations were normal. Multiple small and large-mouthed diverticula were found in the recto-sigmoid colon, sigmoid colon and descending colon. An 8 mm polyp was found in the cecum. The polyp was sessile. The polyp was removed with a jumbo cold forceps. Resection and retrieval were complete. Verification of patient identification for the specimen was done. Impression: - Diverticulosis in the recto-sigmoid colon, in the sigmoid colon and in the descending colon. - One 8 mm polyp in the cecum, removed with a jumbo cold forceps. Resected and retrieved. Recommendation: - Await pathology results. - Repeat colonoscopy in 5 years for surveillance. - Continue present medications. Procedure Code(s): --- Professional --- 79356, Colonoscopy, flexible; with biopsy, single or multiple CPT copyright 2021 [employer]. All rights reserved. The codes documented in this report are preliminary and upon customer service correspondence clerk review may be revised to meet current compliance requirements. John Queen DO 07/01/2023 7:20:44 AM This report has been signed electronically. Number of Addenda: 0 Note Initiated On: 07/01/2023 6:52 AM
--- NOTE | 2023-07-01 07:21 | OP.CCLET_ITS ---
07/01/2023 Jose Montez [address] [place] [address] Re : Colonoscopy procedure for Nyla Saleh Dear Dr. Montez This procedure was performed on Saturday, July 01, 2023. My impressions and recommendations are as follows: Impressions : - Diverticulosis in the recto-sigmoid colon, in the sigmoid colon and in the descending colon. - One 8 mm polyp in the cecum, removed with a jumbo cold forceps. Resected and retrieved. Recommendations : - Await pathology results. - Repeat colonoscopy in 5 years for surveillance. - Continue present medications. My findings are described in the full procedure note, which is enclosed. If I can be of further assistance, please feel free to contact me at . Sincerely, John Queen, 07/01/2023 7:20:44 AM This report has been signed electronically.
[2023-07-01 07:25] VITALS: BP 140/89; BP 97/72; PULSE 88; RESP 16; O2SAT 98
[2023-07-01 07:30] VITALS: BP 116/80; BP 140/89; PULSE 89; RESP 16; TEMP 36.3; O2SAT 99
[2023-07-01 07:46] VITALS: BP 140/89
== END 2023-07-01 07:58 | disposition home or self-care (01) ==
LOC: EN 05:15 → AC 05:17
PROVIDERS: PCP Family Medicine; Referring Provider Family Medicine; Visit Provider Internal Medicine Gastroenterology
PROC: 0DJD8ZZ Inspection of Lower Intestinal Tract, Via Natural or Artificial Opening Endoscopic (ICD-10-PCS; CPT 45378; principal; 2023-07-01 06:25)
DX: Z12.11 Encounter for screening for malignant neoplasm of colon (principal); D12.0 Benign neoplasm of cecum; K31.A0 Gastric intestinal metaplasia, unspecified; K57.30 Diverticulosis of large intestine without perforation or abscess without bleeding; K59.1 Functional diarrhea; K21.00 Gastro-esophageal reflux disease with esophagitis, without bleeding; K44.9 Diaphragmatic hernia without obstruction or gangrene; G89.29 Other chronic pain; F17.200 Nicotine dependence, unspecified, uncomplicated
CPT/HCPCS: 45380; 43239; 88305; 88313; J7120; J2405

== ENCOUNTER 2023-12-08 05:21 | Emergency (ER) | payer MEDICAID, SELFPAY ==
[2023-12-08 05:22] VITALS: BP 162/84; PULSE 81; RESP 16; TEMP 36.3; O2SAT 100; BMI 27.8
[2023-12-08 05:44] VITALS: BP 100/47; PULSE 77; RESP 16; TEMP 36.6; O2SAT 99
--- NOTE | 2023-12-08 05:46 | CT_ITS ---
STUDY: CT ABDOMEN AND PELVIS WITH CONTRAST REASON FOR EXAM: Female, 53 years old patient with abdominal pain. RADIATION DOSAGE (If Supplied By Facility): CTDIvol = ( 15.52 ) mGy, DLP = ( 861.93 ) mGycm TECHNIQUE: Transaxial images were obtained from the dome of the diaphragm to the symphysis pubis without oral contrast. 100 mL of IV Isovue-370 was administered. Sagittal and coronal images were reconstructed. Individualized dose optimization techniques were used for this CT. COMPARISON: CT of the abdomen dated March 06, 2023. FINDINGS: The visualized lung bases are unremarkable. The visualized portions of the heart are within normal limits. Normal liver. Normal gallbladder and extrahepatic biliary system. Normal spleen. There is diffuse atrophy of the pancreas. Normal bilateral adrenal glands. Normal right kidney. Normal left kidney. Normal visualized stomach. There is no obvious dilated bowel, ascites or pneumoperitoneum. Minimal stool is visible throughout the colon. There is diffuse abnormal thickening of the thorpe of the colon suggesting sequela of infectious or inflammatory colitis. The most severe abnormal wall thickening is visible in the sigmoid colon where there are numerous diverticula. Appears to be some acute inflammation adjacent to the sigmoid colon. The appendix is visualized and appears normal. There is diffuse atherosclerotic calcification of the abdominal aorta, without a demonstrated aneurysm. There is venous distention of the inferior vena cava (IVC). Normal retroperitoneum. Normal urinary bladder. There is absence of the uterus consistent with a prior hysterectomy. Normal abdominal wall. Normal osseous structures. CT/Abdomen/Pelvis W IV Cont ONLY IMPRESSION: 1. Findings suggest sequela of infectious or inflammatory colitis. 2. The most severe changes are at the sigmoid colon where there are also diverticula. The sequela of acute exacerbation of an inflammatory or infectious colitis and/or diverticulitis is possible in the sigmoid colon. Electronically Signed: Treva Chowdhury MD at 7:20 EDT ,
[2023-12-08 05:54] LABS: Absolute Lymphocyte Count 2.18 X10^3/uL (0.83-4.51); Absolute Neutrophil Count 10.6 X10^3/uL (2.0-7.7); Basophil# 0.04 X10^3/uL; Basophil% 0.3 % (0-1); Eosinophil# 0.04 X10^3/uL; Eosinophils% 0.3 % (0-5); Hematocrit 42.4 % (37-47); Hemoglobin 13.9 g/dL (12.0-15.0); Lymphocyte # 2.18 X10^3/ul (0.83-4.51); Lymphocyte % 16.1 % (19-41); Mean Corp Hgb Conc 32.8 g/dL (32-36); Mean Corpuscular Hgb 31.9 pg (27.0-32.0); Mean Corpuscular Volume 97.2 fL (81-99); Mean Platelet Vol. 10.9 fl (6.2-12.0); Monocyte# 0.57 X10^3/uL; Monocyte% 4.2 % (0-10); NRBC Flagged by Analyzer 0 % (0-5); Neutrophil # 10.64 X10^3/uL (2.7-7.7); Neutrophil % 78.6 % (47-70); Platelet Count 287 K/mm3 (150-450); RBC Distribution Width CV 12.4 % (11.6-14.6); RBC Distribution Width SD 44.8 fl (35.1-43.9); Red Blood Count 4.36 M/mm3 (4.2-5.4); White Blood Count 13.5 K/mm3 (4.4-11.0)
--- NOTE | 2023-12-08 06:04 | EDS_ITS ---
HPI History of Present Illness Chief Complaint: Abd Pain Informant: patient and friend Narrative Narrative: Patient is a 53-year-old female who follows with gastroenterology secondary to recurrent abdominal pain bouts of nausea and vomiting and diarrhea. She reports that she has been changing her diet at the recommendation of GI trying to avoid triggers of her symptoms. She denies any new ingestion or change to her medications but states that she awoke early this morning with generalized abdominal discomfort and bouts of nausea and vomiting. She states that she tried her home medications without any symptom improvement. She states that her symptoms today are worse than her baseline and secondary to this she comes in for evaluation. [facility] Medical History Gluten intolerance Wears glasses History of diverticulosis Chronic diarrhea Vomiting Dyspepsia Alcohol use Arthritis Low iron Easy bruising Injury of head and neck Injury of back History of diverticulitis Shortness of breath on exertion Smoker History of pain when walking Home Medications ?Medication ?Instructions ?Recorded ?Last Taken ?Type acetaminophen 325 mg tablet 1,000 mg PO DAILY PRN pain 08/15/21 06/30/23 History (Tylenol) ciprofloxacin HCl 500 mg tablet 500 mg PO BID 14 days #28 tabs 12/08/23 Unknown Rx (Cipro) metronidazole 500 mg tablet 500 mg PO TID 14 days #42 tabs 12/08/23 Unknown Rx ondansetron 4 mg disintegrating 4 mg PO TID PRN nausea and 12/08/23 Unknown Rx tablet vomiting #21 tabs Allergy/AdvReac Type Severity Reaction Status Date / Time codeine Allergy Severe Vomiting Verified 07/01/23 05:51 Penicillins Allergy PT UNSURE Verified 07/01/23 05:51 OF REACTION Surgical History Hx of colonoscopy Hx of wisdom tooth extraction Hx of bilateral inguinal hernia repair History of partial hysterectomy Hx of tubal ligation Social History Smoking Status: Current every day smoker tobacco type: cigarettes alcohol intake: current alcohol intake frequency: 3 or more drinks per day ROS ROS ED Constitutional Constitutional ED: Denies chills or fever(s) Eyes Eyes: Denies blurry vision or change in vision ENT ENT ED: Reports sore throat Cardiovascular Cardiovascular: Denies chest pain or palpitations Respiratory/Chest Respiratory/Chest: Denies cough or dyspnea Gastrointestinal Gastrointestinal: Reports abdominal pain, nausea and vomiting; Denies diarrhea Genitourinary Genitourinary ED: Denies dysuria Musculoskeletal Musculoskeletal: Denies back pain, myalgias or neck pain Integumentary Denies rash Neurologic Neurologic: Denies headache(s) Hematologic/Lymphatic Hematologic/Lymphatic: Denies easy bleeding or easy bruising Allergic/Immunologic Allergic/Immunologic ED: Denies mouth swelling or tongue swelling EXAM Physical Exam Const Vital Signs: 12/08/23 05:22 12/08/23 05:44 12/08/23 06:31 Temperature 97.4 F L 98 F Temperature Source Oral Pulse Rate 81 77 Respiratory Rate 16 16 Blood Pressure 162/84 H 100/47 L Blood Pressure Mean 110 64 Pulse Ox 100 99 83 Oxygen Delivery Method Room Air Room Air Oxygen Flow Rate (L/min) 12/08/23 06:32 12/08/23 07:25 Temperature 97.4 F L Temperature Source Oral Pulse Rate 71 Respiratory Rate 18 Blood Pressure 127/67 H Blood Pressure Mean 87 Pulse Ox 100 100 Oxygen Delivery Method Nasal Cannula Room Air Oxygen Flow Rate (L/min) 2 Positive well nourished and well developed General Appearance ED: well developed; Negative for pallor HEENT Reports dry mucous membranes HEENT Narrative: Mucous membranes are dry and tacky without tongue or lip swelling oral lesions airway edema or compromise There are no secondary findings in the posterior pharynx to suggest infection Mouth ED: Yes dry mucous membranes Mouth: dry mucous membranes Eyes PERRL and EOMs intact bilaterally General Eye ED: Negative for scleral icterus Neck supple Neck Narrative: No nuchal rigidity or meningeal signs No crepitance palpated Resp normal respiratory effort and clear to auscultation bilaterally Cardio regular rate and regular rhythm Rate: other Other Details: Radial and carotid pulses are equal and symmetric Heart is regular rate and rhythm without murmurs rubs or gallops GI non-distended and no masses GI Narrative: Abdomen is soft and nondistended with hyperactive bowel sounds. There is mild diffuse pain on palpation without voluntary guarding or rigidity. No pulsatile mass or fluid wave Auscultation: hyperactive bowel sounds Palpation: soft Extremity normal to inspection Neuro oriented x3, CN's II-XII intact bilaterally and no sensory deficits noted Sensorium / Orientation: alert Motor Exam: strength 5/5 throughout Psych Psych Narrative: Patient has a nervous/anxious/tearful affect Skin no rashes or lesions noted and No skin turgor normal Skin Narrative: Skin turgor is slightly increased General Skin Exam: Negative for jaundice or pallor MDM MDM MDM Narrative Medical decision making narrative: Patient arrived to the ER hypertensive but otherwise with stable vitals. She has a longstanding history of recurrent abdominal pain with bouts of vomiting and diarrhea. She is followed by human resource analyst Dr. Queen and there is concern for potential secretory diarrhea and dumping syndrome as a cause of her symptoms. The human resource analyst last note from June of this year was reviewed and he did question potential need for CT scan to check for pancreatic calcifications. With the patient's symptoms of abdominal pain nausea and vomiting I did elect to perform a CT scan with IV contrast as there is concern this could be inflammatory versus infectious colitis diverticulitis intestinal abscess or perforation pancreatitis biliary colic or acute cholecystitis. Laboratory showed leukocytosis at 13.5 with mild left shift. However there is no signs of acute kidney injury or severe electrolyte abnormality. The CT scan showed diffuse intestinal thickening consistent with infectious versus inflammatory colitis. Based on the patient's longstanding history of recurrent abdominal symptoms I feel this is most likely inflammatory in nature. However because this is her first time in the emergency department despite following with the PCP and specialist elect to discuss the case with gastroenterology. After reviewing the case they do feel this is most likely inflammatory in nature and as the patient's had improvement of vitals and resolution of symptoms after Benadryl and Thorazine in the ER I do not feel there is need for addition of antibiotics. Therefore patient will be charged at this time and she can follow- up with her family doctor and human resource analyst on an outpatient basis and continue her normal home medication History & Record Review Discussion w/independent historian: Patient and Family Lab Data Attestation: I reviewed the patient's lab results. Labs: Laboratory Results - last 24 hr 12/08/23 05:38 WBC 13.5 H RBC 4.36 Hgb 13.9 Hct 42.4 MCV 97.2 MCH 31.9 MCHC 32.8 RDW Std Deviation 44.8 H RDW Coeff of Reina 12.4 Plt Count 287 MPV 10.9 Immature Gran % (Auto) 0.500 Neut % (Auto) 78.6 H Lymph % (Auto) 16.1 L [place] % (Auto) 4.2 Eos % (Auto) 0.3 Baso % (Auto) 0.3 Absolute Neuts (auto) 10.6 H Absolute Lymphs (auto) 2.18 Nucleated RBC % 0 Sodium 139 Potassium 3.4 L Chloride 105 Carbon Dioxide 25.0 Anion Gap 9 BUN 4 L Creatinine 0.71 Estim Creat Clear Calc 82.57 Est GFR (MDRD) Af Amer 111 Est GFR (MDRD) Non-Af 92 BUN/Creatinine Ratio 5.7 L Glucose 150 H Calcium 9.8 Magnesium 1.8 Total Bilirubin 0.70 Direct Bilirubin 0.18 AST 15 ALT 18 Alkaline Phosphatase 135 H Total Protein 7.5 Albumin 4.1 Globulin 3.4 Lipase 26 Radiography Diagnostic Testing: Clinical Impression(s) from Imaging Studies Abdomen/Pelvis CT 12/08/23 05:46 IMPRESSION: 1. Findings suggest sequela of infectious or inflammatory colitis. 2. The most severe changes are at the sigmoid colon where there are also diverticula. The sequela of acute exacerbation of an inflammatory or infectious colitis and/or diverticulitis is possible in the sigmoid colon. Electronically Signed: Treva Chowdhury MD at 7:20 EDT , Discharge Plan Triage Chief Complaint: Abd Pain ED Provider: Britton Everett Dx/Rx/DC Orders Clinical Impression: Colitis, Nausea & vomiting, Diverticulitis Instructions: Diverticulitis Dc, ED Understanding Colitis Prescriptions: New ondansetron 4 mg tablet,disintegrating 4 mg PO TID PRN (Reason: nausea and vomiting) Qty: 21 0RF ciprofloxacin HCl [Cipro] 500 mg tablet 500 mg PO BID 14 Days Qty: 28 0RF metronidazole 500 mg tablet 500 mg PO TID 14 Days Qty: 42 0RF No Action acetaminophen [Tylenol] 325 mg Tablet 1,000 mg PO DAILY PRN (Reason: pain) Primary Care Provider: Jose Montez Referrals: Jose Montez MD [Primary Care Provider] - Friend,DO John [Med Staff - Active Staff] - Activity Restrictions/Additional Instructions: As your CAT scan shows the start of diverticulitis please take the Cipro and Flagyl as directed to resolve this infection. Use the Zofran to control any further bouts of nausea and vomiting and keep yourself well-hydrated. Follow-up with your family doctor and/or human resource analyst for repeat evaluation and return to the ER should you have any further concerns Print Language: Occitan Disposition Disposition: Home, Self Care
[2023-12-08] MEDS: 0.9% Normal Saline (1000mL) 1,000 ML 999 ML IV (06:09)
[2023-12-08] MEDS: DiphenhydrAMINE 25 MG, ChlorproMAZINE IM 50 MG in 0.9% Normal Saline (250mL Bag) 250 ML 252.5 MG IV (06:09)
[2023-12-08 06:31] VITALS: O2SAT 83
[2023-12-08 06:32] VITALS: O2SAT 100
[2023-12-08 06:36] LABS: AST(SGOT) 15 U/L (15-37); Alanine Aminotransfer ALT/SGPT 18 U/L (13-56); Albumin, Serum 4.1 g/dL (3.2-5.0); Alkaline Phosphatase 135 U/L (45-117); Anion Gap 9 (5-15); BUN 4 mg/dL (7-18); BUN/Creat Ratio 5.7 RATIO (10-20); Bilirubin, Direct 0.18 mg/dL (0.00-0.30); Calcium,Total 9.8 mg/dL (8.5-10.1); Chloride 105 mmol/L (98-107); Creatinine, Serum 0.71 mg/dL (0.55-1.02); EST Glomerular Filtration Rate 92 mL/min (>60); Est Glom Filt Rate - Afr Amer 111 mL/min (>60); Estimated Creatinine Clearance 82.57 ml/min; Globulin 3.4 g/dL (2.2-4.2); Glucose 150 mg/dL (74-106); Lipase 26 U/L (13-75); Magnesium 1.8 mg/dL (1.6-2.6); Potassium 3.4 mmol/L (3.5-5.1); Protein, Total 7.5 g/dL (6.4-8.2); Sodium Level 139 mmol/L (136-145)
[2023-12-08 07:25] VITALS: BP 127/67; PULSE 71; RESP 18; TEMP 36.3; O2SAT 100
[2023-12-08 08:21] VITALS: BP 127/60; PULSE 72; RESP 16; TEMP 36.4; O2SAT 98
== END 2023-12-08 08:22 | disposition home or self-care (01) ==
PROVIDERS: Emergency Provider Emergency Medicine; PCP Family Medicine; Visit Provider Emergency Medicine
DX: K52.9 Noninfective gastroenteritis and colitis, unspecified (principal); K57.32 Diverticulitis of large intestine without perforation or abscess without bleeding; F17.210 Nicotine dependence, cigarettes, uncomplicated
CPT/HCPCS: 74177; 80048; 80076; 83690; 83735; 85025; 96365; 96366; 99283; J7030; J7050; Q9967; A4216

== ENCOUNTER → 2024-01-13 | Outpatient (CLI) | payer MEDICAID, SELFPAY ==
--- NOTE | 2024-01-13 11:17 | RAD_ITS ---
STUDY: X-RAY - CERVICAL SPINE REASON FOR EXAM: Female, 53 years old. cervical disc degeneration, pain TECHNIQUE: 7 view(s) of the cervical spine were obtained. COMPARISON: 03/06/2021 FINDINGS: Normal anterior atlantoaxial articulation. Normal odontoid process. Normal cervical lordosis. 2 mm retrolisthesis of C5 on C6. No subluxation on the flexion or extension views to suggest instability. There is multi-level endplate spondylosis. There is multi-level degenerative disc disease with multilevel disc space narrowing. Normal visualized intervertebral neuroforamina. The soft tissue structures are unremarkable. RAD/Cerv Spine Obl/Flex/Ext Comp IMPRESSION: Degenerative disc disease with 2 mm retrolisthesis of C5 on C6. No instability. Electronically Signed: Fransisco Hicks MD at 9:34 EST ,
== END | disposition home or self-care (01) ==
LOC: MTRAD 11:16
PROVIDERS: PCP Family Medicine; Referring Provider Anesthesiology Pain Medicine; Visit Provider Anesthesiology Pain Medicine
DX: M50.30 Other cervical disc degeneration, unspecified cervical region (principal)
CPT/HCPCS: 72052

== ENCOUNTER → 2024-01-22 | Outpatient (CLI) | payer MEDICAID, SELFPAY ==
--- NOTE | 2024-01-22 14:47 | CT_ITS ---
STUDY: LOW DOSE CT LUNG CANCER SCREENING REASON FOR EXAM: Female, 53 years old. Tobacco use RADIATION DOSAGE (If Supplied By Facility): CTDIvol = ( 2.01 ) mGy, DLP = ( 62.18 ) mGycm TECHNIQUE: No contrast was administered. Low dose technique was utilized (average mAS-38 and kVp 120). 1.25 mm axial source images with a slice interval of 1.25-mm were reconstructed in lung windows. 2.5 mm axial source images with a slice interval of 2.5-mm were reconstructed in lung windows. 5.0 mm axial source images with a slice interval of 5.0-mm were reconstructed in soft tissue windows. COMPARISON: None. NODULES: No suspicious nodules are seen. Emphysema: No significant emphysematous changes. Endobronchial lesion: None Aorta: Minimal calcific plaque at the level of the aortic arch. CORONARY ARTERIES: Coronary artery calcification is seen. Heart: Unremarkable Pulmonary artery: Unremarkable Mediastinal nodes: Unremarkable Other chest and abdominal findings: CT/Low Dose CT Lung Screening IMPRESSION: Lung-RADS category 2 - Continue annual screening with LDCT in 12 months. IMPORTANT NOTES FOR USE: ACR Lung-RADS Version 1.1 Assessment Categories Release Date: 2018 Category: Coded 0-4 bases on nodule(s) with highest degree of suspicion. Negative screen is defined as categories 1 and 2; a positive screen is defined as categories 3 and 4. Category 3 and 4A nodules that are unchanged on interval CT should be coded as category 2, and individuals returned to screening in 12 months. Category 4X: Category 3 or 4 nodules with additional imaging findings that increase the suspicion of lung cancer, such as spiculation, GGN that doubles in size in 1 year, enlarged lymph notes, etc. Category Modifiers: S (significant finding unrelated to lung cancer) Electronically Signed: Carroll Shearer MD at 11:52 EST ,
== END | disposition home or self-care (01) ==
LOC: CT 14:44
PROVIDERS: PCP Family Medicine; Referring Provider Family Medicine; Visit Provider Family Medicine
DX: F17.210 Nicotine dependence, cigarettes, uncomplicated (principal)
CPT/HCPCS: 71271

== ENCOUNTER → 2024-04-05 | Outpatient (CLI) | payer MEDICAID, SELFPAY ==
[2024-04-05 14:28] LABS: Absolute Lymphocyte Count 3.48 X10^3/uL (0.83-4.51); Absolute Neutrophil Count 5.8 X10^3/uL (2.0-7.7); Basophil# 0.04 X10^3/uL; Basophil% 0.4 % (0-1); Eosinophil# 0.09 X10^3/uL; Eosinophils% 0.9 % (0-5); Hematocrit 41.3 % (37-47); Hemoglobin 14.1 g/dL (12.0-15.0); Lymphocyte # 3.48 X10^3/ul (0.83-4.51); Mean Corp Hgb Conc 34.1 g/dL (32-36); Mean Corpuscular Hgb 33.1 pg (27.0-32.0); Mean Corpuscular Volume 96.9 fL (81-99); Mean Platelet Vol. 11.3 fl (6.2-12.0); Monocyte# 0.54 X10^3/uL; Monocyte% 5.4 % (0-10); NRBC Flagged by Analyzer 0 % (0-5); Neutrophil # 5.77 X10^3/uL (2.7-7.7); Platelet Count 238 K/mm3 (150-450); RBC Distribution Width CV 13.2 % (11.6-14.6); RBC Distribution Width SD 47.8 fl (35.1-43.9); Red Blood Count 4.26 M/mm3 (4.2-5.4)
[2024-04-05 14:54] LABS: ALB/GLOB Ratio 1.2 RATIO (0.9-2.4); AST(SGOT) 16 U/L (15-37); Alanine Aminotransfer ALT/SGPT 20 U/L (13-56); Albumin, Serum 3.9 g/dL (3.2-5.0); Alkaline Phosphatase 122 U/L (45-117); Amylase 36 U/L (25-115); Anion Gap 5 (5-15); BUN 6 mg/dL (7-18); Chloride 102 mmol/L (98-107); Creatinine, Serum 0.67 mg/dL (0.55-1.02); EST Glomerular Filtration Rate 98 mL/min (>60); Est Glom Filt Rate - Afr Amer 118 mL/min (>60); Globulin 3.2 g/dL (2.2-4.2); Glucose 105 mg/dL (74-106); Lipase 21 U/L (13-75); Protein, Total 7.1 g/dL (6.4-8.2); Sodium Level 136 mmol/L (136-145)
[2024-04-08 08:10] LABS: Deamidated Gliadin IgA 16 units (0-19); Deamidated Gliadin IgG 2 units (0-19); Endomysial Antibody IgA Negative (Negative); Immunoglobulin A 272 mg/dL (87-352); t-Transglutaminase IgA 2 U/mL (0-3)
== END | disposition home or self-care (01) ==
LOC: LAB 13:58
PROVIDERS: PCP Family Medicine; Referring Provider Internal Medicine Gastroenterology; Visit Provider Internal Medicine Gastroenterology
DX: K90.41 Non-celiac gluten sensitivity (principal)
CPT/HCPCS: 36415; 80053; 82150; 82784; 83516; 83690; 85025; 86255

== ENCOUNTER → 2024-04-08 | Outpatient (CLI) | payer MEDICAID, SELFPAY ==
--- NOTE | 2024-04-08 07:48 | US_ITS ---
PROCEDURE: ABDOMEN LIMITED WITH ELASTOGRAPHY REASON FOR EXAM: Fatty liver. Right upper quadrant pain COMPARISON: Right upper quadrant ultrasound dated 01/25/2023. TECHNIQUE: Right upper quadrant abdominal ultrasound. ElastQ Imaging shear wave elastography for non-invasive assessment of liver tissue stiffness. FINDINGS: LIVER: Size: Unremarkable Length: 12.1 cm sagittally. Echotexture: Hyper echogenic parenchyma. Homogeneous texture. Blood flow: Hepatopetal. Contour: Normal Lesions: None identified Elastography: EQI Med: 4 kPa EQI Med Tone: 1.15 m/s GALLBLADDER: Normal COMMON BILE DUCT: Normal 0.58 cm.. PANCREAS: Normal Right kidney: 10.3 x 5.7 x 4.4 cm. Right renal cortex measures 1.4 cm. US/ABD Limited w/ Elastography IMPRESSION: 1. Steatosis. 2. F 0, normal elastography of the liver. Reference Values: SRU <1.37 m/s (5.7kPa): No to mild fibrosis 1.37 m/s - 2.2 m/s: Moderate to severe fibrosis >2.2 m/s (15kPa): Significant fibrosis / cirrhosis METAVIR Score F2 or higher: 1.34 m/s (5.7kPa) F3 or higher: 1.55 m/s (7.3kPa) F4: 1.80 m/s (10kPa) * If the IQR/Med is >30%, the variance in the measurements is a large and the a ccuracy of the measurement may be in question. Reading Location: [facility]
== END | disposition home or self-care (01) ==
LOC: US 07:46
PROVIDERS: PCP Family Medicine; Referring Provider Family Medicine; Visit Provider Internal Medicine Gastroenterology
DX: K76.0 Fatty (change of) liver, not elsewhere classified (principal); K90.41 Non-celiac gluten sensitivity
CPT/HCPCS: 76705; 76981

== ENCOUNTER → 2024-04-13 | Outpatient (CLI) | payer MEDICAID, SELFPAY ==
--- NOTE | 2024-04-13 12:48 | NM_ITS ---
PROCEDURE: HEPATOBILLIARY IMG W/PHARM INT REASON FOR EXAM: Right upper quadrant abdominal pain. TECHNIQUE: Intravenous Choletec with planar imaging of the abdomen. 1.4 mcg Kinevac intravenously approximately 60 minutes after the radiopharmaceutical with additional anterior imaging and a region of interest drawn around the gallbladder to calculate a time-activity curve. RADIOPHARMACEUTICAL: 5.4 mCi mebrofenin intravenous. COMPARISON: CT examination of 12/08/2023. FINDINGS: There is good uptake of the radiopharmaceutical by the liver. Normal gallbladder visualization with the gallbladder identified by 10 minutes. Small bowel activity is seen by 45 minutes. Gallbladder Ejection Fraction: 96 % at 21 minutes (normal is >35%) NM/Hepatobilliary Img w/Pharm Int IMPRESSION: NORMAL HIDA SCAN AND GALLBLADDER EJECTION FRACTION. Reading Location: [address]
== END | disposition home or self-care (01) ==
PROVIDERS: PCP Family Medicine; Referring Provider Internal Medicine Gastroenterology; Visit Provider Internal Medicine Gastroenterology
DX: R10.11 Right upper quadrant pain (principal); K90.41 Non-celiac gluten sensitivity
CPT/HCPCS: 78227; A9537; J2805